=== PATIENT | male | born 1995 | race Caucasian/White ===

== ENCOUNTER 2016-05-10 05:27 | Emergency (ER) | payer OTHER ==
[2016-05-10] MEDS ORDERED: Ondansetron INJ* 2 MG/ML VIAL ONE (06:20)
[2016-05-10 06:32] VITALS: BP 122/66
[2016-05-10] MEDS ORDERED: Ondansetron INJ* 2 MG/ML VIAL IV ONE (06:38)
[2016-05-10] MEDS ORDERED: NS 0.9% 1000 ML* 1,000 ML IV ONE (06:38)
--- NOTE | 2016-05-10 06:42 | ED ---
GI/ HPI - HPI Summary HPI Summary: 21 M w/ no PMH presents with n/v/d since 2 am. He admits to generalized abdominal pain. He denies any fever. He said that abdominal pain is cramp like. He was vomiting but threw up everything that he had in his stomach and started dry heaving. He goes to [place] and does not know anyone else that is sick. He had one episode of diarrhea. - History of Current Complaint Chief Complaint: EDNauseaVomitDiarrh Time Seen by Provider: 05/10/16 06:31 Stated Complaint: VOMITING//POSS FOOD POISIONING Pain Intensity: 0 - Allergy/Home Medications Allergies/Adverse Reactions: Allergies Allergy/AdvReac Type Severity Reaction Status Date / Time No Known Allergies Allergy Verified 05/10/16 05:40 Home Medications: Home Medications Alfuzosin HCl [Uroxatral] 10 mg PO DAILY 05/10/16 [History Confirmed 05/10/16] Omeprazole CAP* [Prilosec CAP* 20 MG] 20 mg PO DAILY 05/10/16 [History Confirmed 05/10/16] PMH/Surg Hx/FS Hx/Imm Hx Endocrine/Hematology History: Denies: Hx Anticoagulant Therapy Cardiovascular History: Denies: Hx Hypertension - Immunization History Date of Tetanus Vaccine: utd Date of Influenza Vaccine: none Infectious Disease History: No Infectious Disease History: Denies: Traveled Outside the [place] in Last 30 Days - Family History Known Family History: Negative: Hypertension - Social History Alcohol Use: Weekly Alcohol Amount: 5-6 at a time Substance Use Type: Reports: None Smoking Status (MU): Never Smoked Tobacco Review of Systems Negative: Fever Negative: Chest Pain Negative: Shortness Of Breath Positive: Abdominal Pain - generalized, Vomiting, Diarrhea, Nausea All Other Systems Reviewed And Are Negative: Yes Physical Exam Triage Information Reviewed: Yes Vital Signs On Initial Exam: Initial Vitals Temp Pulse Resp BP Pulse Ox 97.7 F 102 18 141/68 99 05/10/16 05:38 05/10/16 05:38 05/10/16 05:38 05/10/16 05:38 05/10/16 05:38 Vital Signs Reviewed: Yes Appearance: Positive: Well-Appearing Skin: Positive: Warm, Dry Head/Face: Positive: Normal Head/Face Inspection Eyes: Positive: Normal, Conjunctiva Clear ENT: Positive: Normal ENT inspection, Pharynx normal, TMs normal Respiratory/Lung Sounds: Positive: Clear to Auscultation, Breath Sounds Present Cardiovascular: Positive: Normal, RRR Abdomen Description: Positive: Nontender, Soft Bowel Sounds: Positive: Present - [place] Coma Scale Coma Scale Total: 15 Diagnostics - Vital Signs Vital Signs Temp Pulse Resp BP Pulse Ox 05/10/16 06:31 87 95 05/10/16 06:30 122/66 05/10/16 05:38 97.7 F 102 18 141/68 99 - Laboratory Result Diagrams: 05/10/16 06:14 05/10/16 06:14 Lab Statement: Any lab studies that have been ordered have been reviewed, and results considered in the medical decision making process. GIGU Course/Dx - Course Course Of Treatment: 21 M presents with n/v/d for a couple hours, nontender on palpation of abdomen, labs ordered and normal, gave fluids and zofran and patient states feels better and would like to go home, discussed likely viral since a lot of ppl at [facility] have similiar symptoms, sent home with zofran, patient agrees with plan - Diagnoses Differential Diagnoses - Male: Gastroenteritis (Bacterial), Gastroenteritis ( Viral), Vomiting Provider Diagnoses: Nausea & vomiting Discharge - Discharge Plan Condition: Good Disposition: HOME Prescriptions: Ondansetron TAB* [Zofran Tab*] 4 mg PO Q6H PRN #12 tab PRN Reason: Nausea Patient Education Materials: Acute Nausea and Vomiting (ED) Referrals: [facility] PAUL Gonzalez [Primary Care Provider] - Additional Instructions: Take zofran as needed every 6 hours for nausea Drink small amounts of fluid as tolerated When able to eat follow BRAT diet: Bananas, rice, applesauce, toast Take ibuprofen or Tylenol for pain as needed every 6 hours Follow up with primary within 5 days if no improvement Return to ED if develop fever, severe abdominal pain, or any new or worsening symptoms
[2016-05-10 06:49] LABS: Hematocrit 43 % (42-52); Mean Corpuscular HGB Conc 35 g/dl (31-36); Mean Corpuscular Hemoglobin 31 pg (27-31); Mean Corpuscular Volume 88 fL (80-94); Mean Platelet Volume 8 um3 (7.4-10.4); Red Blood Count 4.87 10^6/ul (4.0-5.4); Red Cell Distribution Width 13 % (10.5-15); White Blood Count 10.5 10^3/ul (3.5-10.8)
[2016-05-10 06:59] LABS: Albumin 4.4 g/dL (3.2-5.2); BUN/Creatinine Ratio 16.1 (8-20); Calcium 9.2 mg/dL (8.6-10.3); EGFR African American 143.9 (>60); EGFR Non-African American 111.9 (>60); Globulin 2.6 g/dL (2-4); Potassium 3.7 mmol/L (3.5-5.0); Total Bilirubin 0.9 mg/dL (0.2-1.0)
== END 2016-05-10 07:47 | disposition home or self-care (01) ==
LOC: ED 05:27
DX: R11.2 Nausea with vomiting, unspecified (principal); R19.7 Diarrhea, unspecified; R10.9 Unspecified abdominal pain
CPT/HCPCS: 36415; 80053; 85025; 96374; 99282; J2405

== ENCOUNTER 2016-07-15 11:58 | Emergency (ER) | payer OTHER ==
[2016-07-15] MEDS ORDERED: Ketorolac INJ* 60 MG/2 ML VIAL IM ONE (12:17)
[2016-07-15] MEDS ORDERED: Ketorolac INJ* 30 MG/ML 1 ML VIAL IV PUSH ONE (12:34)
[2016-07-15] MEDS ORDERED: Ketorolac INJ* 30 MG/ML 1 ML VIAL ONE (12:35)
[2016-07-15 12:40] LABS: Hematocrit 44 % (42-52); Hemoglobin 15.1 g/dl (14.0-18.0); Mean Corpuscular HGB Conc 34 g/dl (31-36); Mean Corpuscular Hemoglobin 30 pg (27-31); Mean Corpuscular Volume 87 fL (80-94); Mean Platelet Volume 8 um3 (7.4-10.4); Red Blood Count 5.02 10^6/ul (4.0-5.4); Red Cell Distribution Width 13 % (10.5-15); White Blood Count 6.5 10^3/ul (3.5-10.8)
[2016-07-15 12:53] LABS: ALT 20 U/L (7-52); AST 16 U/L (13-39); Albumin 4.6 g/dL (3.2-5.2); Alkaline Phosphatase 59 U/L (34-104); Anion Gap 6 mmol/L (2-11); BUN/Creatinine Ratio 18.2 (8-20); Blood Urea Nitrogen 16 mg/dL (6-24); C Reactive Protein < 1.00 mg/L (< 5.00); CO2 Carbon Dioxide 28 mmol/L (22-32); Calcium 9.7 mg/dL (8.6-10.3); Chloride 102 mmol/L (101-111); EGFR Non-African American 110.4 (>60); Globulin 2.6 g/dL (2-4); Glucose 91 mg/dL (70-100); Lipase 12 U/L (11.0-82.0); Potassium 4.2 mmol/L (3.5-5.0); Sodium 136 mmol/L (133-145); Total Protein 7.2 g/dL (6.4-8.9)
--- NOTE | 2016-07-15 12:57 | RAD ---
INDICATION: Left flank pain COMPARISON: None TECHNIQUE: Noncontrast axial source images were acquired from the level hemidiaphragms to the symphysis pubis as part of CT imaging for renal stone. Lung bases: The lung bases are clear. Liver: The liver is normal in size. Noncontrast imaging shows no evidence of a hepatic mass or ductal dilatation. Gallbladder: There are no calcified gallstones. There is no evidence of wall thickening or pericholecystic fluid.. Spleen: The spleen is normal in size. The noncontrast CT appearance is normal. Pancreas: Noncontrast imaging shows no pancreatic mass or ductal dilitation. Adrenal glands: No masses are identified. Kidneys/Bladder: There is no evidence of nephrolithiasis or CT evidence of hydronephrosis. Noncontrast imaging shows no evidence of a renal mass. The bladder is unremarkable.. Adenopathy: There is no evidence of intraperitoneal or retroperitoneal adenopathy. Evaluation is limited without oral contrast. Fluid collections: There are no free or localized fluid collections. Vessels: The aorta and iliac vessels are normal in caliber. There are no significant atherosclerotic changes. The IVC appears normal Pelvic organs: The prostate and seminal vesicles appear normal GI tract: Evaluation of the bowel is limited without oral contrast. The stomach, small bowel, and lower GI tract appear grossly normal. There are no obstructive findings. Soft tissues: No soft tissue abnormalities of the extraperitoneal abdomen or pelvis are identified. Osseous structures: There are no acute osseous findings. IMPRESSION: NO CT EVIDENCE OF UROLITHIASIS. NO MASS OR INFLAMMATORY CHANGE
--- NOTE | 2016-07-15 13:08 | ED ---
GI/ HPI - HPI Summary HPI Summary: Patient arrives with CC of left sided flank pain since this morning. He states he has had a long history of weak stream and bladder issues which include failure to empty bladder completely, weak stream, obstructive symptoms, enlarged prostate. He was seen twice by urologists in his hometown of [place]. Urologist had diagnosed him with acute bacterial prostatitis and he was given abx. He was diagnosed with this after a negative bladder scan, slightly enlarged and tender prostate with no other acute findings. No CT was done. He was then later seen by a fellow urologist in [place] but stated the MD did not listen to him and just gave him bactrim for 4 weeks for bacterial prostatitis without checking him. The urologist from [place] stated he would need to return for possible cystoscopy and dilation if symptoms continue, but he never went back d/t him living here and he is a student here. He has been experiencing these issues for over 1 year and states he does not remember what it feels like to urinate normally anymore. - History of Current Complaint Chief Complaint: EDFlankPain Time Seen by Provider: 07/15/16 12:06 Stated Complaint: LT SIDE FLANK PAIN Hx Obtained From: Patient Onset/Duration: Started Minutes Ago Timing: Constant Severity: Moderate Current Severity: Moderate Pain Intensity: 7 Location of Pain: Flank Pain Characteristics: Sharp, Colicy Associated Signs and Symptoms: Positive: Flank Pain Aggravating Factor(s): Voiding, Straining Alleviating Factor(s): Nothing - Allergy/Home Medications Allergies/Adverse Reactions: Allergies Allergy/AdvReac Type Severity Reaction Status Date / Time No Known Allergies Allergy Verified 07/15/16 11:59 PMH/Surg Hx/FS Hx/Imm Hx Previously Healthy: Yes Endocrine/Hematology History: Denies: Hx Anticoagulant Therapy Cardiovascular History: Denies: Hx Hypertension - Surgical History Surgery Procedure, Year, and Place: ankle surgeries, cyst removed Rt leg, tonsil /adnoidectomy - Immunization History Date of Tetanus Vaccine: utd Date of Influenza Vaccine: none Infectious Disease History: No Infectious Disease History: Denies: Traveled Outside the [place] in Last 30 Days - Family History Known Family History: Negative: Hypertension - Social History Occupation: Unemployed Lives: Alone Alcohol Use: Weekly Alcohol Amount: 5-6 at a time Hx Substance Use: Yes Substance Use Type: Reports: Marijuana Hx Tobacco Use: No Smoking Status (MU): Never Smoked Tobacco Review of Systems Constitutional: Negative Eyes: Negative Respiratory: Negative Gastrointestinal: Negative Positive: no symptoms reported, see HPI, frequency, urgency Musculoskeletal: Negative Skin: Negative Neurological: Negative Psychological: Normal All Other Systems Reviewed And Are Negative: Yes Physical Exam Triage Information Reviewed: Yes Vital Signs On Initial Exam: Initial Vitals Temp Pulse Resp BP Pulse Ox 97.5 F 54 16 126/75 100 07/15/16 11:59 07/15/16 11:59 07/15/16 11:59 07/15/16 11:59 07/15/16 11:59 Vital Signs Reviewed: Yes Appearance: Positive: Well-Appearing, Well-Nourished Skin: Positive: Skin Color Reflects Adequate Perfusion Eyes: Positive: Normal, BOLIVAR Neck: Positive: Supple, No Lymphadenopathy Respiratory/Lung Sounds: Positive: Clear to Auscultation, Breath Sounds Present Abdomen Description: Positive: Soft, CVA Tenderness (L) Bowel Sounds: Positive: Present Musculoskeletal: Positive: Normal, Strength/ROM Intact Neurological: Positive: Sensory/Motor Intact, Alert, Oriented to Person Place, Time, Speech Normal Psychiatric: Positive: Normal AVPU Assessment: Alert - [place] Coma Scale Coma Scale Total: 15 Diagnostics - Vital Signs Vital Signs Temp Pulse Resp BP Pulse Ox 07/15/16 11:59 97.5 F 54 16 126/75 100 - Laboratory Lab Results: Lab Results 07/15/16 07/15/16 Range/Units 12:25 12:25 WBC 6.5 (3.5-10.8) 10^3/ul RBC 5.02 (4.0-5.4) 10^6/ul Hgb 15.1 (14.0-18.0) g/dl Hct 44 (42-52) % MCV 87 (80-94) fL MCH 30 (27-31) pg MCHC 34 (31-36) g/dl RDW 13 (10.5-15) % Plt Count 251 (150-450) 10^3/ul MPV 8 (7.4-10.4) um3 Neut % (Auto) 54.6 (38-83) % Lymph % (Auto) 35.0 (25-47) % [place] % (Auto) 4.7 (1-9) % Eos % (Auto) 5.1 (0-6) % Baso % (Auto) 0.6 (0-2) % Absolute Neuts (auto) 3.6 (1.5-7.7) 10^3/ul Absolute Lymphs (auto) 2.3 (1.0-4.8) 10^3/ul Absolute Monos (auto) 0.3 (0-0.8) 10^3/ul Absolute Eos (auto) 0.3 (0-0.6) 10^3/ul Absolute Basos (auto) 0 (0-0.2) 10^3/ul Absolute Nucleated RBC 0 10^3/ul Nucleated RBC % 0 Sodium 136 (133-145) mmol/L Potassium 4.2 (3.5-5.0) mmol/L Chloride 102 (101-111) mmol/L Carbon Dioxide 28 (22-32) mmol/L Anion Gap 6 (2-11) mmol/L BUN 16 (6-24) mg/dL Creatinine 0.88 (0.67-1.17) mg/dL Est GFR ( Amer) 142.0 (>60) Est GFR (Non-Af Amer) 110.4 (>60) BUN/Creatinine Ratio 18.2 (8-20) Glucose 91 (70-100) mg/dL Calcium 9.7 (8.6-10.3) mg/dL Total Bilirubin 0.80 (0.2-1.0) mg/dL AST 16 (13-39) U/L ALT 20 (7-52) U/L Alkaline Phosphatase 59 (34-104) U/L C-Reactive Protein < 1.00 (< 5.00) mg/L Total Protein 7.2 (6.4-8.9) g/dL Albumin 4.6 (3.2-5.2) g/dL Globulin 2.6 (2-4) g/dL Albumin/Globulin Ratio 1.8 (1-3) Lipase 12 (11.0-82.0) U/L Result Diagrams: 07/15/16 12:25 07/15/16 12:25 Lab Statement: Any lab studies that have been ordered have been reviewed, and results considered in the medical decision making process. - CT No standard instances CT Interpretation: No Acute Changes CT Interpretation Completed By: Radiologist - IMPRESSION: NO CT EVIDENCE OF UROLITHIASIS. NO MASS OR INFLAMMATORY CHANGE GIGU Course/Dx - Course Course Of Treatment: Patient given toradol for relief. Ct abd/pelvis unremarkable. Patient encouraged to follow up with Dr. Rahman d/t on going symptoms. Explained to patient d/t 4 weeks antibiotics without change in symptoms, unlikely this is related to prostatitis. Seems obstructive and patient agrees. Flomax rx as this medication as helped patient in the past for a stronger urination stream and less feeling of retention. UA OK. Patient discharged with follow up. - Diagnoses Differential Diagnoses - Male: Bladder Dysfunction, Renal Calculi, Renal Colic, Ureteral Calculi Provider Diagnoses: Bladder dysfunction Discharge - Discharge Plan Condition: Stable Disposition: HOME Prescriptions: Tamsulosin CAP* [Flomax CAP*] 0.4 mg PO BEDTIME #15 cap Patient Education Materials: Urinary Retention in Men (ED) Referrals: [facility] PAUL Gonzalez [Primary Care Provider] - Cruzito Rahman MD [Medical Doctor] - Additional Instructions: Follow up with Dr. Rahman. Continue with Flomax at night for improvement of symptoms.
[2016-07-15 13:29] VITALS: BP 108/61
[2016-07-15 13:29] LABS: Urine Bilirubin Negative (Negative); Urine Glucose Negative (Negative); Urine Nitrite Negative (Negative)
== END 2016-07-15 13:38 | disposition home or self-care (01) ==
LOC: ED 11:58
DX: N31.9 Neuromuscular dysfunction of bladder, unspecified (principal); R10.84 Generalized abdominal pain
CPT/HCPCS: 36415; 74176; 80053; 81003; 83690; 85025; 86140; 96374; 96375; 99283; J1885

== ENCOUNTER 2017-07-08 18:08 | Emergency (ER) | payer OTHER ==
[2017-07-08] MEDS ORDERED: Pantoprazole IV* 40 MG IV ONE (19:52)
[2017-07-08] MEDS ORDERED: NS 0.9% 1000 ML* 2,000 ML IV ONE (19:52)
[2017-07-08] MEDS ORDERED: Ondansetron INJ* 2 MG/ML VIAL IV ONE ×2 (19:52→22:27)
[2017-07-08] MEDS ORDERED: Al Hydrox/Mg Hydrox/Simet LIQ* 30 ML UDC PO ONE (19:53)
[2017-07-08] MEDS ORDERED: Lidocaine 2% VISCOUS* 15 ML UDC PO ONE (19:53)
[2017-07-08 20:53] LABS: INR 1.01 (0.77-1.02)
[2017-07-08 20:55] LABS: ABS Basophils 0 10^3/ul (0-0.2); ABS Eosinophils 0.1 10^3/ul (0-0.6); ABS Lymphocytes 0.9 10^3/ul (1.0-4.8); ABS Monocytes 0.6 10^3/ul (0-0.8); ABS Neutrophils 14.5 10^3/ul (1.5-7.7); ABS Nucleated RBC 0 10^3/ul; Eosinophil % 0.8 % (0-6); Hematocrit 49 % (42-52); Hemoglobin 17.2 g/dl (14.0-18.0); Lymphocyte % 5.4 % (25-47); Mean Corpuscular HGB Conc 35 g/dl (31-36); Mean Corpuscular Hemoglobin 31 pg (27-31); Mean Corpuscular Volume 87 fL (80-94); Mean Platelet Volume 7.9 um3 (7.4-10.4); Nucleated Red Blood Cells % 0; Platelet Count 276 10^3/ul (150-450); Red Blood Count 5.64 10^6/ul (4.0-5.4); Red Cell Distribution Width 13 % (10.5-15); White Blood Count 16.1 10^3/ul (3.5-10.8)
[2017-07-08 21:01] LABS: EGFR Non-African American 93.2 (>60)
[2017-07-08] MEDS ORDERED: NS 0.9% 1000 ML* 1,000 ML IV ONE (22:27)
[2017-07-08] MEDS ORDERED: O ndansetron ODT 4MG 2TAB PRPK 4 MG PAK PO ONE (22:32)
--- NOTE | 2017-07-08 22:38 | ED ---
Davi Linton Jennifer, scribed for Khari Pichardo MD on 07/08/17 at 1955 . GI/ HPI - HPI Summary HPI Summary: The patient is a 22 year old male who presents with four episodes of vomiting and abdominal pain that began this morning at 12:00. The patient has a history of GERD and reports feeling a little sick last night. However, this morning he vomited blood two times and lost consciousness for 10 seconds after the first episode. He states it felt like he was popping blood vessels in his face. The patient reports the last two episodes of vomiting was yellowish bile without blood. He adds that he didnt eat breakfast this morning and hasnt been able to keep any food down. The patient additionally complains of muscle twitching since this morning and severe abdominal pain that feels like a sports hernia, which he has had before. - History of Current Complaint Chief Complaint: EDNauseaVomitDiarrh Time Seen by Provider: 07/08/17 19:44 Stated Complaint: VOMITING BLOOD/SYNCOPE Hx Obtained From: Patient Onset/Duration: Started Hours Ago - 8 hours, Still Present Timing: Constant Severity: Severe Current Severity: Severe Pain Intensity: 8 Location of Pain: Epigastric Pain Characteristics: Other: - Abdominal pain "Feels like sports hernia" Associated Signs and Symptoms: Positive: Other: - four episodes of vomiting - two of which were vomiting blood, loss of consciousness after first vomiting episode, muscle twitching, abdominal pain Aggravating Factor(s): Food Alleviating Factor(s): Nothing - Allergy/Home Medications Allergies/Adverse Reactions: Allergies Allergy/AdvReac Type Severity Reaction Status Date / Time No Known Allergies Allergy Verified 07/15/16 11:59 PMH/Surg Hx/FS Hx/Imm Hx Endocrine/Hematology History: Denies: Hx Anticoagulant Therapy Cardiovascular History: Denies: Hx Hypertension GI History: Reports: Hx Gastroesophageal Reflux Disease Musculoskeletal History: Reports: Other Musculoskeletal History - Sports hernia - Surgical History Surgery Procedure, Year, and Place: ankle surgeries, cyst removed Rt leg, tonsil /adnoidectomy - Immunization History Date of Tetanus Vaccine: utd Date of Influenza Vaccine: none Infectious Disease History: No Infectious Disease History: Denies: Traveled Outside the [place] in Last 30 Days - Family History Known Family History: Negative: Hypertension - Social History Occupation: Student Alcohol Use: Weekly Alcohol Amount: 5-6 at a time Hx Substance Use: Yes Substance Use Type: Reports: Marijuana Hx Tobacco Use: No Smoking Status (MU): Never Smoked Tobacco Review of Systems Positive: Cough Positive: Abdominal Pain, Vomiting - 2 episodes of vomiting blood, 4 episodes total Positive: Other - Muscle twitching Neurological: Other - Loss of consciousness All Other Systems Reviewed And Are Negative: Yes Physical Exam - Summary Physical Exam Summary: General: mildly ill appearing, no pain distress Skin: warm, color reflects adequate perfusion, dry Head: normal Eyes: EOMI, BOLIVAR ENT: oral mucosa slightly dry Neck: supple, nontender Respiratory: CTA, breath sounds present Cardiovascular: a little tachycardic, regular rhythm Abdomen: soft, tender in the epigastrium Bowel: present Musculoskeletal: normal, strength/ROM intact Neurological: normal, sensory/motor intact, A&O x3 Psychological: affect/mood appropriate Triage Information Reviewed: Yes Vital Signs On Initial Exam: Initial Vitals Temp Pulse Resp BP Pulse Ox 98.2 F 103 22 141/100 96 07/08/17 18:12 07/08/17 18:12 07/08/17 18:12 07/08/17 18:12 07/08/17 18:12 Vital Signs Reviewed: Yes Diagnostics - Vital Signs Vital Signs Temp Pulse Resp BP Pulse Ox 07/08/17 18:12 98.2 F 103 22 141/100 96 - Laboratory Lab Results: Lab Results 07/08/17 07/08/17 07/08/17 Range/Units 20:30 20:30 20:30 WBC (3.5-10.8) 10^3/ul RBC (4.0-5.4) 10^6/ul Hgb (14.0-18.0) g/dl Hct (42-52) % MCV (80-94) fL MCH (27-31) pg MCHC (31-36) g/dl RDW (10.5-15) % Plt Count (150-450) 10^3/ul MPV (7.4-10.4) um3 Neut % (Auto) (38-83) % Lymph % (Auto) (25-47) % [place] % (Auto) (0-7) % Eos % (Auto) (0-6) % Baso % (Auto) (0-2) % Absolute Neuts (auto) (1.5-7.7) 10^3/ul Absolute Lymphs (auto) (1.0-4.8) 10^3/ul Absolute Monos (auto) (0-0.8) 10^3/ul Absolute Eos (auto) (0-0.6) 10^3/ul Absolute Basos (auto) (0-0.2) 10^3/ul Absolute Nucleated RBC 10^3/ul Nucleated RBC % INR (Anticoag Therapy) 1.01 (0.77-1.02) APTT 27.4 (26.0-36.3) seconds Sodium 135 (133-145) mmol/L Potassium 4.4 (3.5-5.0) mmol/L Chloride 99 L (101-111) mmol/L Carbon Dioxide 27 (22-32) mmol/L Anion Gap 9 (2-11) mmol/L BUN 19 (6-24) mg/dL Creatinine 1.01 (0.67-1.17) mg/dL Est GFR ( Amer) 119.9 (>60) Est GFR (Non-Af Amer) 93.2 (>60) BUN/Creatinine Ratio 18.8 (8-20) Glucose 88 (70-100) mg/dL Lactic Acid (0.5-2.0) mmol/L Calcium 10.5 H (8.6-10.3) mg/dL Total Bilirubin 2.00 H (0.2-1.0) mg/dL AST 18 (13-39) U/L ALT 22 (7-52) U/L Alkaline Phosphatase 68 (34-104) U/L C-Reactive Protein 3.71 (< 5.00) mg/L Total Protein 8.2 (6.4-8.9) g/dL Albumin 5.1 (3.2-5.2) g/dL Globulin 3.1 (2-4) g/dL Albumin/Globulin Ratio 1.6 (1-3) Lipase < 10 L (11.0-82.0) U/L Influenza A (Rapid) (Negative) Influenza B (Rapid) (Negative) Blood Type O Positive Antibody Screen Negative 07/08/17 07/08/17 07/08/17 Range/Units 20:30 20:30 20:50 WBC 16.1 H (3.5-10.8) 10^3/ul RBC 5.64 H (4.0-5.4) 10^6/ul Hgb 17.2 (14.0-18.0) g/dl Hct 49 (42-52) % MCV 87 (80-94) fL MCH 31 (27-31) pg MCHC 35 (31-36) g/dl RDW 13 (10.5-15) % Plt Count 276 (150-450) 10^3/ul MPV 7.9 (7.4-10.4) um3 Neut % (Auto) 89.8 H (38-83) % Lymph % (Auto) 5.4 L (25-47) % [place] % (Auto) 3.9 (0-7) % Eos % (Auto) 0.8 (0-6) % Baso % (Auto) 0.1 (0-2) % Absolute Neuts (auto) 14.5 H (1.5-7.7) 10^3/ul Absolute Lymphs (auto) 0.9 L (1.0-4.8) 10^3/ul Absolute Monos (auto) 0.6 (0-0.8) 10^3/ul Absolute Eos (auto) 0.1 (0-0.6) 10^3/ul Absolute Basos (auto) 0 (0-0.2) 10^3/ul Absolute Nucleated RBC 0 10^3/ul Nucleated RBC % 0 INR (Anticoag Therapy) (0.77-1.02) APTT (26.0-36.3) seconds Sodium (133-145) mmol/L Potassium (3.5-5.0) mmol/L Chloride (101-111) mmol/L Carbon Dioxide (22-32) mmol/L Anion Gap (2-11) mmol/L BUN (6-24) mg/dL Creatinine (0.67-1.17) mg/dL Est GFR ( Amer) (>60) Est GFR (Non-Af Amer) (>60) BUN/Creatinine Ratio (8-20) Glucose (70-100) mg/dL Lactic Acid 1.1 (0.5-2.0) mmol/L Calcium (8.6-10.3) mg/dL Total Bilirubin (0.2-1.0) mg/dL AST (13-39) U/L ALT (7-52) U/L Alkaline Phosphatase (34-104) U/L C-Reactive Protein (< 5.00) mg/L Total Protein (6.4-8.9) g/dL Albumin (3.2-5.2) g/dL Globulin (2-4) g/dL Albumin/Globulin Ratio (1-3) Lipase (11.0-82.0) U/L Influenza A (Rapid) Negative (Negative) Influenza B (Rapid) Negative (Negative) Blood Type Antibody Screen Result Diagrams: 07/08/17 20:30 07/08/17 20:30 Lab Statement: Any lab studies that have been ordered have been reviewed, and results considered in the medical decision making process. - EKG 18:21 Cardiac Rate: NL EKG Rhythm: Sinus Rhythm - [address] Segment: Normal Ectopy: None GIGU Course/Dx - Course Course Of Treatment: Medications reviewed. BP noted and advised to follow up with PCP. EPIGASTRIC PAIN IMPROVED WITH GI COCKTAIL. FEELS IMPROVED AFTER IVF AND ZOFRAN. HAS BLOOD IN HIS EMESIS X 2 AROUND MID DAY TODAY. HAS HAD SEVERAL FURTHER EPISODES OF VOMITING SINCE THEN WITHOUT ANY BLOOD. F/U WITH [facility] AND HIS DRAMATIC COACH, DR MARSHALL RIVAS (PHONE [phone];FAX [phone]). RETURN IF WORSE. - Diagnoses Provider Diagnoses: Elevated BP without diagnosis of hypertension Discharge - Sign-Out/Discharge Documenting (check all that apply): Discharge - Discharge Plan Condition: Stable Disposition: HOME Prescriptions: Ondansetron ODT TAB* [Zofran 4 MG Odt TAB*] 4 mg PO Q6H PRN #10 tab.odt PRN Reason: Nausea Patient Education Materials: Dehydration (ED), Acute Nausea and Vomiting (ED), Epigastric Pain (ED) Referrals: [facility] - Sahil DEAN [Primary Care Provider] - Diane Rivas [Other] ([employer] Department Manager at [facility]) Additional Instructions: FOLLOW UP WITH YOUR DOCTOR. RETURN TO THE EMERGENCY DEPARTMENT FOR ANY WORSENING OF YOUR CONDITION OR QUESTIONS OR CONCERNS. YOUR BLOOD PRESSURE WAS ELEVATED TODAY; FOLLOW UP WITH YOUR PRIMARY CARE DOCTOR WITHIN ONE WEEK. - Billing Disposition and Condition Condition: STABLE Disposition: HOME The documentation as recorded by the Davi sharma Jennifer accurately reflects the service I personally performed and the decisions made by me, Khari Pichardo MD.
[2017-07-09 02:38] VITALS: BP 120/75
--- NOTE | 2017-07-09 07:20 | RAD ---
INDICATION: Epigastric pain, elevated bilirubin. COMPARISON: Comparison is made with a prior CT of the abdomen and pelvis from July 15, 2016. TECHNIQUE: Multiple real-time images of the right upper quadrant were obtained. FINDINGS: The gallbladder appear normal. No gallbladder wall thickening or pericholecystic fluid is present. No positive sonographic [place] sign was present. No intra or extrahepatic ductal distention is present. The common bile duct measured 0.2 cm in diameter. The liver is normal in size without significant focal abnormality. The pancreas is partially obscured by overlying bowel gas. The right kidney is normal in size without evidence for hydronephrosis. IMPRESSION: NEGATIVE EXAM.
== END 2017-07-09 00:45 | disposition home or self-care (01) ==
LOC: ED 18:08
DX: R03.0 Elevated blood-pressure reading, without diagnosis of hypertension (principal); R10.9 Unspecified abdominal pain; R11.10 Vomiting, unspecified; R05 Cough
CPT/HCPCS: 36415; 76705; 80053; 83605; 83690; 85025; 85610; 85730; 86140; 86850; 86900; 86901; 87502; 93005; 96374; 99284; A9270-GY; J2405